=== PATIENT | male | born 1960 | race Two or more races ===

== ENCOUNTER 2023-06-29 06:44 | Emergency (ER) | payer OTHER ==
[~2023-06-29] VITALS: Ht 182.9 cm; Wt 77.3 kg
[2023-06-29 06:54] VITALS: TEMP 99
[2023-06-29] MEDS ORDERED: ATOR20TA65 PO (07:00)
[2023-06-29] MEDS ORDERED: METF-1211 PO (07:00)
[2023-06-29] MEDS ORDERED: METF-446 PO (07:00)
[2023-06-29] MEDS ORDERED: ASPI-1444 PO (07:00)
[2023-06-29] MEDS ORDERED: GLYB-145 PO (07:00)
[2023-06-29] MEDS ORDERED: TRAZ-252 PO (07:00)
[2023-06-29] MEDS ORDERED: LISI5TAB21 PO (07:00)
[2023-06-29] MEDS ORDERED: TAMS-13 PO (07:00)
[2023-06-29] MEDS ORDERED: MECLIZINE HCL 25 MG TABLET PO ONE (08:00)
[2023-06-29 09:50] LABS: COVID AG,FIA SOURCE NASOPHARYNGEAL
[2023-06-29] MEDS ORDERED: IBUP-1492 PO (11:13)
[2023-06-29] MEDS ORDERED: MECL-167 PO (11:15)
[2023-06-29 11:30] VITALS: BP 125/75; PULSE 80; RESP 16
[2023-06-29] MEDS ORDERED: IBUPROFEN 600 MG TABLET PO ONE (11:30)
[2023-06-29] MEDS ORDERED: CYCL10TA16 PO (11:30)
== END 2023-06-29 13:22 | disposition home or self-care (01) ==
LOC: EMS 06:46
DX: U07.1 COVID-19 (principal); R42 Dizziness and giddiness; E11.9 Type 2 diabetes mellitus without complications; E78.00 Pure hypercholesterolemia, unspecified; Z20.822 Contact with and (suspected) exposure to COVID-19
CPT/HCPCS: 70450; 93005; 99284